=== PATIENT | female | born 2000 | race Caucasian/White ===

== ENCOUNTER 2024-05-08 19:07 | Emergency (ER) | payer OTHER ==
[~2024-05-08] VITALS: Ht 160 cm; Wt 65.8 kg
[2024-05-08] MEDS ORDERED: ACETAMINOPHEN ES 500 MG TABLET ONE (20:29)
[2024-05-08] MEDS: ACETAMINOPHEN ES 500 MG TABLET PO ONE (20:30)
[2024-05-08] MEDS ORDERED: CYCLOBENZAPRINE 10 MG TABLET ONE (21:27)
[2024-05-08] MEDS: CYCLOBENZAPRINE 10 MG TABLET PO ONE (21:28)
[2024-05-08] MEDS ORDERED: ACET-2605 PO (21:33)
[2024-05-08] MEDS ORDERED: IBUP-1955 PO (21:33)
[2024-05-08] MEDS ORDERED: CYCL5TAB PO (21:33)
[2024-05-08 21:45] VITALS: BP 130/78; TEMP 97.9; O2SAT 99
== END 2024-05-08 21:45 | disposition home or self-care (01) ==
LOC: ER 19:12
DX: R51.9 Headache, unspecified (principal); R07.81 Pleurodynia; R11.0 Nausea; V43.62XA Car passenger injured in collision with other type car in traffic accident, initial encounter; Y93.89 Activity, other specified; Y92.488 Other paved roadways as the place of occurrence of the external cause; Y99.8 Other external cause status
CPT/HCPCS: 71100-TC

== ENCOUNTER 2024-10-16 12:34 | Emergency (ER) | payer OTHER ==
[~2024-10-16] VITALS: Ht 167.6 cm; Wt 63.5 kg
[~2024-10-16 12:34] MED LIST: ACET-2605 PO; CYCL5TAB PO; IBUP-1955 PO
[2024-10-16 13:15] LABS: BASOPHILS # (AUTO) 0.1 K/uL (0.0-0.2); BASOPHILS % (AUTO) 1.5 % (0.0-2.0); EOSINOPHILS % (AUTO) 0.6 % (0.0-6.0); HEMATOCRIT 39 % (33-45); HEMOGLOBIN 13.2 g/dL (11.5-14.8); LYMPHOCYTES # (AUTO) 2.7 K/uL (0.8-4.8); LYMPHOCYTES % (AUTO) 34.9 % (20.0-44.0); MEAN CORPUSCULAR HEMOGLOBIN 31 PG (26.0-33.0); MEAN CORPUSCULAR HGB CONC 34 g/dl (31.0-36.0); MEAN CORPUSCULAR VOLUME 91 fL (82-100); MONOCYTES # (AUTO) 0.5 K/uL (0.1-1.30); MONOCYTES % (AUTO) 6.2 % (2.0-12.0); NEUTROPHILS # (AUTO) 4.4 K/uL (1.8-8.9); NEUTROPHILS % (AUTO) 56.8 % (43.0-81.0); PLATELET COUNT (AUTO) 373 K/uL (150-450); RED CELL DISTRIBUTION WIDTH 13.4 % (11.5-15.0); WHITE BLOOD COUNT (AUTO) 7.8 K/uL (4.3-11.0)
[2024-10-16 13:29] LABS: CALCIUM, SERUM 8.2 mg/dL (8.5-10.1); CARBON DIOXIDE 30 mmol/L (21-32); CHLORIDE 109 mmol/L (98-107); CREATININE 0.9 mg/dL (0.6-1.3); GLUCOSE 109 mg/dL (74-106); POTASSIUM 4.1 mmol/L (3.5-5.1); SODIUM SERUM 143 mmol/L (136-145); UREA NITROGEN, BLOOD 10 mg/dL (7-18)
[2024-10-16 13:30] LABS: APPEARANCE,URINE CLEAR (CLEAR); BILIRUBIN,URINE NEGATIVE (NEGATIVE); BLOOD, URINE NEGATIVE Ery/uL (NEGATIVE); COLOR,URINE YELLOW (YELLOW); KETONES,URINE NEGATIVE (NEGATIVE); LEUKOCYTE ESTERASE ,URINE NEGATIVE (NEGATIVE); NITRITE, URINE NEGATIVE (NEGATIVE); PROTEIN,URINE NEGATIVE (NEGATIVE); UGLUCOSE NEGATIVE (NEGATIVE); UROBILINOGEN,URINE 0.2 EU/dL (0.2)
[2024-10-16 13:39] LABS: ALANINE AMINOTRANSFERASE 22 U/L (12-78); ALBUMIN 3.6 g/dL (3.4-5.0); ALCOHOL, BLOOD 392 mg/dL (0-10); ALKALINE PHOSPHATASE 80 U/L (46-116); ASPARTATE AMINOTRANSFERASE 22 U/L (15-37); BILIRUBIN,DIRECT 0.1 mg/dL (0.0-0.2); BILIRUBIN,TOTAL 0.2 mg/dL (0.2-1.0); TOTAL PROTEIN, SERUM 6.7 g/dL (6.4-8.2)
[2024-10-16 13:39] LABS: AMPHETAMINE, URINE NEGATIVE (NEGATIVE); BARBITURATE, URINE NEGATIVE (NEGATIVE); BENZODIAZEPINE, URINE NEGATIVE (NEGATIVE); CANNABINOID, URINE NEGATIVE (NEGATIVE); COCCAINE, URINE NEGATIVE (NEGATIVE); OPIATE, URINE NEGATIVE (NEGATIVE); PHENCYCLIDINE SCREEN,URINE NEGATIVE (NEGATIVE)
[2024-10-16 13:55] LABS: ACETAMINOPHEN <10 ug/ml (10-30); SALICYLATE 1.2 mg/dL (2.8-20.0)
[2024-10-16 17:44] VITALS: BP 102/75; TEMP 97.9; O2SAT 99
== END 2024-10-16 17:46 | disposition home or self-care (01) ==
LOC: ER 12:39
DX: F10.129 Alcohol abuse with intoxication, unspecified (principal); F19.10 Other psychoactive substance abuse, uncomplicated; Z20.822 Contact with and (suspected) exposure to COVID-19; Y90.8 Blood alcohol level of 240 mg/100 ml or more
CPT/HCPCS: 36415; 80048-TC; 80076-TC; 85025-TC; G0480